=== PATIENT | female | born 1950 | race Caucasian/White ===

== ENCOUNTER → 2017-03-09 | Outpatient (CLI) | payer MEDICARE, BC ==
--- NOTE | 2017-03-09 17:31 | REP ---
PET/CT: History: Restaging multiple myeloma. Comparisons: Comparison made with images from prior PET-CT study dated December 01, 2016. Report of this study is not available. Comparison bone survey August 05, 2016. Comparison images maxillofacial MR study November 16, 2016. TECHNIQUE: 60 minutes following the intravenous injection of a 9.7 mCi dose of F-18 FDG, three-dimensional PET scintigraphy is acquired from the skull base to the proximal thighs. Triplanar noncontrast CT scanning is acquired through the same anatomic range for attenuation correction, and image registration with scan parameters optimized to minimize radiation exposure to the patient. PET scintigraphy and CT datasets were fused and displayed on a workstation with multiplanar and projection display capability. PET/CT Findings: The soft tissue mass previously noted lateral to the right maxillary bone and maxillary alveolar region appears to be much improved. There is some spray from adjacent dental amalgam but I do not see the soft tissue mass on today's accompanying CT study and there is no abnormal hypermetabolic uptake here. There is improved aeration in the maxillary sinus as well. The prior PET-CT images show the soft tissue mass but did not show the appearance of hypermetabolic uptake. Previous study showed slightly increased uptake in one of the anterior upper right rib ends. This is improved. This may reflect a healing fracture. Maximum SUV value is 0.8. No other abnormal skeletal hypermetabolic uptake is seen. No bony destructive lesion is seen here. No other focal skeletal destructive lesion is seen. There is evidence of a healing left sacral insufficiency fracture. Maximum standard uptake value in this region is 2.0. No other abnormal hypermetabolic uptake is seen. Impression: Improved PET-CT. The right maxillary, alveolar and perialveolar mass is no longer apparent. There is a tiny focus of nonhypermetabolic uptake in the anterior end of the right second anterior rib which is improved. This may be a healing fracture. There is evidence of a healed or healing left sacral insufficiency fracture. No other abnormal hypermetabolic uptake. Signed by Rohan Alcala MD 03/10/2017 08:34 A
== END ==
LOC: M PLARAD 09:26
PROVIDERS: ATTEND Internal Medicine Medical Oncology
DX: C90.02 Multiple myeloma in relapse (principal); M85.80 Other specified disorders of bone density and structure, unspecified site
CPT/HCPCS: 78816; A9552

== ENCOUNTER → 2017-04-13 | Outpatient (REF) | payer MEDICARE, BC ==
[2017-04-13 14:40] LABS: IMMUNOGLOBULIN G 593 MG/DL (681-1648); TOTAL PROTEIN 6.1 GM/DL (6.4-8.2)
[2017-04-13 15:35] LABS: IMMUNOGLOBULIN M 18.3 MG/DL (40-230)
[2017-04-14 11:02] LABS: ALBUMIN 3.98 GM/DL (3.29-5.55); ALBUMIN % 65.3 % (55.8-66.1)
== END ==
LOC: M LAB REF 12:52
PROVIDERS: ATTEND Internal Medicine Medical Oncology
DX: C90.00 Multiple myeloma not having achieved remission (principal)

== ENCOUNTER → 2017-05-12 | Outpatient (REF) | payer MEDICARE, BC ==
[2017-05-12 16:31] LABS: IMMUNOGLOBULIN G 564 MG/DL (681-1648); TOTAL PROTEIN 5.9 GM/DL (6.4-8.2)
[2017-05-14 00:07] LABS: BETA 2 MICROGLOBULIN 1.6 mg/L (0.6-2.4); FREE KAPPA LIGHT CHAINS SERUM 18.9 mg/L (3.3-19.4); FREE LAMBDA LIGHT CHAINS SERUM 7.3 mg/L (5.7-26.3); KAPPA/LAMBDA RATIO SERUM 2.59 (0.26-1.65)
[2017-05-16 12:47] LABS: ALBUMIN 3.76 GM/DL (3.29-5.55); ALBUMIN % 63.7 % (55.8-66.1); GAMMA GLOBULIN % 10.4 % (11.1-18.8)
== END ==
LOC: M LAB REF 13:10
PROVIDERS: ATTEND Internal Medicine Medical Oncology
DX: C90.00 Multiple myeloma not having achieved remission (principal)

== ENCOUNTER → 2017-06-07 | Outpatient (REF) | payer MEDICARE, BC ==
[2017-06-07 19:19] LABS: IMMUNOGLOBULIN G 534 MG/DL (681-1648); TOTAL PROTEIN 6.4 GM/DL (6.4-8.2)
[2017-06-07 21:12] LABS: IMMUNOGLOBULIN M 16.8 MG/DL (40-230)
[2017-06-09 10:47] LABS: ALBUMIN 4.12 GM/DL (3.29-5.55); ALBUMIN % 64.4 % (55.8-66.1); GAMMA GLOBULIN % 10.6 % (11.1-18.8)
[2017-06-10 14:17] LABS: BETA 2 MICROGLOBULIN 1.5 mg/L (0.6-2.4); FREE KAPPA LIGHT CHAINS SERUM 17.9 mg/L (3.3-19.4); FREE LAMBDA LIGHT CHAINS SERUM 3.6 mg/L (5.7-26.3); KAPPA/LAMBDA RATIO SERUM 4.97 (0.26-1.65)
== END ==
LOC: M LAB REF 16:53
PROVIDERS: ATTEND Internal Medicine Medical Oncology
DX: C90.00 Multiple myeloma not having achieved remission (principal)

== ENCOUNTER → 2017-06-15 | Outpatient (CLI) | payer MEDICARE, BC ==
--- NOTE | 2017-06-15 14:32 | REP ---
PET/CT: HISTORY: Restaging myeloma. COMPARISONS: Comparison PET/CTs are reviewed dated 03/09/2017, and 12/01/2016. TECHNIQUE: 50 minutes following the intravenous injection of a 9.7 mCi dose of F-18 FDG, three-dimensional PET scintigraphy is acquired from the skull base to the proximal thighs. Triplanar noncontrast CT scanning is acquired through the same anatomic range for attenuation correction, and image registration with scan parameters optimized to minimize radiation exposure to the patient. PET scintigraphy and CT datasets were fused and displayed on a workstation with multiplanar and projection display capability. PET/CT FINDINGS: The previously noted uptake in the right maxilla is no longer apparent. No maxillary lesion is seen on accompanying CT. There is normal variant skeletal muscle uptake in the right deltoid muscle as well as in the paraspinal muscles dorsally on the right in the lumbar region. Head and neck soft tissues are unremarkable. No abnormal hypermetabolic uptake is seen within the thorax. No abnormal abdominal or pelvic uptake is seen. No abnormal skeletal uptake is observed. No abnormal rib uptake is seen. IMPRESSION: Negative PET/CT. Signed by Rohan Alcala MD 06/15/2017 03:25 P
== END ==
LOC: M PLARAD 07:35
PROVIDERS: ATTEND Internal Medicine Medical Oncology
DX: C90.00 Multiple myeloma not having achieved remission (principal)
CPT/HCPCS: 78815; A9552

== ENCOUNTER → 2017-07-08 | Outpatient (REF) | payer MEDICARE, BC ==
[2017-07-08 14:27] LABS: IMMUNOGLOBULIN G 525 MG/DL (681-1648); TOTAL PROTEIN 6.7 GM/DL (6.4-8.2)
[2017-07-08 14:32] LABS: IMMUNOGLOBULIN M 13.2 MG/DL (40-230)
[2017-07-10 00:06] LABS: BETA 2 MICROGLOBULIN 1.4 mg/L (0.6-2.4); FREE KAPPA LIGHT CHAINS SERUM 26.4 mg/L (3.3-19.4); FREE LAMBDA LIGHT CHAINS SERUM 3.3 mg/L (5.7-26.3)
[2017-07-11 12:08] LABS: ALBUMIN 4.33 GM/DL (3.29-5.55); ALBUMIN % 64.6 % (55.8-66.1); GAMMA GLOBULIN % 11.6 % (11.1-18.8)
== END ==
LOC: M LAB REF 12:57
PROVIDERS: ATTEND Internal Medicine Medical Oncology
DX: C90.00 Multiple myeloma not having achieved remission (principal)

== ENCOUNTER → 2017-08-09 | Outpatient (REF) | payer MEDICARE, BC ==
[2017-08-09 14:46] LABS: IMMUNOGLOBULIN G 614 MG/DL (681-1648); TOTAL PROTEIN 6.7 GM/DL (6.4-8.2)
[2017-08-11 00:06] LABS: BETA 2 MICROGLOBULIN 1.6 mg/L (0.6-2.4); FREE KAPPA LIGHT CHAINS SERUM 16.3 mg/L (3.3-19.4); FREE LAMBDA LIGHT CHAINS SERUM 8.7 mg/L (5.7-26.3); KAPPA/LAMBDA RATIO SERUM 1.87 (0.26-1.65)
[2017-08-11 11:07] LABS: ALBUMIN % 66.4 % (55.8-66.1)
[2017-08-11 11:08] LABS: ALBUMIN 4.45 GM/DL (3.29-5.55); GAMMA GLOBULIN % 9.1 % (11.1-18.8)
== END ==
LOC: M LAB REF 12:55
PROVIDERS: ATTEND Internal Medicine Medical Oncology
DX: C90.00 Multiple myeloma not having achieved remission (principal)

== ENCOUNTER → 2017-09-06 | Outpatient (REF) | payer MEDICARE, BC ==
[2017-09-06 16:38] LABS: IMMUNOGLOBULIN A 95.7 MG/DL (70-400); IMMUNOGLOBULIN G 567 MG/DL (681-1648); IMMUNOGLOBULIN M 21.9 MG/DL (40-230); TOTAL PROTEIN 6.8 GM/DL (6.4-8.2)
[2017-09-08 15:23] LABS: ALBUMIN 4.32 GM/DL (3.29-5.55); ALBUMIN % 63.5 % (55.8-66.1); GAMMA GLOBULIN % 8.7 % (11.1-18.8)
[2017-09-09 00:06] LABS: BETA 2 MICROGLOBULIN 1.9 mg/L (0.6-2.4); FREE KAPPA LIGHT CHAINS SERUM 18.9 mg/L (3.3-19.4); KAPPA/LAMBDA RATIO SERUM 2.1 (0.26-1.65)
== END ==
LOC: M LAB REF 15:30
PROVIDERS: ATTEND Internal Medicine Medical Oncology
DX: C90.00 Multiple myeloma not having achieved remission (principal)

== ENCOUNTER → 2017-10-06 | Outpatient (REF) | payer MEDICARE, BC ==
[2017-10-06 20:22] LABS: IMMUNOGLOBULIN G 544 MG/DL (681-1648); IMMUNOGLOBULIN M 21.8 MG/DL (40-230); TOTAL PROTEIN 6.9 GM/DL (6.4-8.2)
[2017-10-09 00:06] LABS: BETA 2 MICROGLOBULIN 1.3 mg/L (0.6-2.4); FREE KAPPA LIGHT CHAINS SERUM 23.7 mg/L (3.3-19.4); FREE LAMBDA LIGHT CHAINS SERUM 5.9 mg/L (5.7-26.3); KAPPA/LAMBDA RATIO SERUM 4.02 (0.26-1.65)
[2017-10-10 13:41] LABS: ALBUMIN 4.37 GM/DL (3.29-5.55); ALBUMIN % 63.4 % (55.8-66.1); GAMMA GLOBULIN % 9.5 % (11.1-18.8)
== END ==
LOC: M LAB REF 18:11
PROVIDERS: ATTEND Internal Medicine Medical Oncology
DX: C90.00 Multiple myeloma not having achieved remission (principal)

== ENCOUNTER → 2017-10-12 | Outpatient (CLI) | payer MEDICARE, BC ==
[~2017-10-12] MED LIST: PROHANCE 279.3MG/ML 15ML VIAL (A9576) As Ordered ONE
--- NOTE | 2017-10-12 21:39 | REP ---
MRI thoracic spine without and with IV contrast: History: History of myeloma. New bilateral thoracic paraspinal pain. Question myeloma progression. No comparison thoracic spine imaging. Comparison PET-CT study is from June 15, 2017. This showed no abnormal uptake. Technique: Sagittal and axial T1 and T2-weighted scans are acquired in the usual fashion with and without fat saturation. Sequences include spin echo, turbo spin-echo, and STIR imaging sequences. Pre and post gadolinium enhanced images are included. Gadolinium enhancement dose is 10.6 ml of intravenous ProHance. MRI findings: There is a new right paravertebral/paraspinal infiltrative mass. In craniocaudal span this measures 7.9 cm extending from the level of the T3-4 disc proximally to the level of the T7 vertebral body distally. This consists of fairly homogeneously enhancing paravertebral soft tissue. There is a smaller paravertebral soft tissue mass which has developed on the left side at the T6 and T6-7 level and possibly at T5. There is intraspinal extradural extension which extends along the dorsal and right lateral aspect of the spinal canal from T4 proximally to the upper portion of T7 distally. No intravertebral bony involvement is appreciated. Both the paravertebral and the intraspinal extradural components of this tumor enhance fairly homogeneously. There is moderate compression of the mid thoracic cord. The cord is displaced ventrally into the left. No intradural or intramedullary disease is appreciated. No abnormal cord signal intensity is appreciated. There is an associated small new right pleural effusion. Also noted is an enhancing nodule along the posterior aspect of the left lobe of the thyroid gland. This measures 2.1 x 1.3 x 3.6 cm. A low density area is seen on the PET/CT from May in this region without hypermetabolic uptake. This may be a left thyroid nodule. No thoracic disc herniation is seen. No other neural foraminal lesion is seen. No other abnormal gadolinium enhancement is seen. 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 Small right pleural effusion noted. Also noted is a 3.6 cm left thyroid nodule. Signed by Rohan Alcala MD 10/13/2017 08:09 A
== END ==
LOC: M RAD 12:34
PROVIDERS: ATTEND Internal Medicine Medical Oncology
DX: M54.14 Radiculopathy, thoracic region (principal); R22.2 Localized swelling, mass and lump, trunk; J90 Pleural effusion, not elsewhere classified; Z85.79 Personal history of other malignant neoplasms of lymphoid, hematopoietic and related tissues
CPT/HCPCS: 72157; A9576